=== PATIENT | female | born 1985 | race Caucasian/White ===

== ENCOUNTER 2017-01-21 20:59 | Inpatient (IN) | payer OTHER ==
[~2017-01-21] VITALS: Ht 160 cm; Wt 52.2 kg
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
--- NOTE | ~2017-01-21 | HP ---
Unit #: [id number] #: [id number] Patient: ARNAUD MAI [id number] [place] [address] [id number] MR#: [id number] NAME: ARNAUD MAI ROOM: P178 Age: 31 Sex: F Admission Date: 01/22/2017 : 1985 Attending Physician: Mikhail Moya M.D. Admitting Physician: Mikhail Moya M.D. Primary Care Physician: Bryan Porter M.D. HISTORY AND PHYSICAL HISTORY OF PRESENT ILLNESS Arnaud is a 31 year old admitted to [facility] because of her continued polysubstance abuse which includes methamphetamine and benzodiazepines. She has had other admissions to this facility for the same. PAST MEDICAL HISTORY 1. Long history of illicit substance abuse to include benzodiazepines and meth. 2. Hepatitis C. PAST SURGICAL HISTORY Nothing reported. ALLERGIES Penicillin (facial swelling). SOCIAL HISTORY Smokes at least 1 pack per day. Denies alcohol. Admits to a long history of illicit substance abuse to include IV heroin and methamphetamine. FAMILY HISTORY Medically noncontributory. REVIEW OF SYSTEMS CONSTITUTIONAL: No fever or chills. HEENT: Denies any sore throat, ear pain or runny nose. CARDIOVASCULAR: Denies chest pain, irregular heart rhythm or palpitations. CHEST: Denies shortness of breath or cough. No hemoptysis. GASTROINTESTINAL: Denies nausea, vomiting, diarrhea or chronic constipation. ENDOCRINE: Denies history of increased thirst or urination. No recent significant weight loss or gain. GENITOURINARY: Denies dysuria, frequency, or hematuria. SKIN: Denies any rashes. HEMATOLOGIC: Denies history of increased bleeding or bruising. MUSCULOSKELETAL: Denies any hot, swollen joints. No generalized muscle pain. NEUROLOGIC: Denies problems with vision or speech. No frequent, severe headaches. No numbness, tingling or weakness in any extremities. Denies loss of bladder or bowel control. CURRENT MEDICATIONS Detox protocol. Unit #: [id number] #: [id number] Patient: ARNAUD MAI PHYSICAL EXAMINATION GENERAL: Alert, well-nourished, in no apparent distress. VITAL SIGNS: Blood pressure 100/60, heart rate 80, respirations 16, temperature 98.6. WEIGHT: 115. HEIGHT: 5 feet 3 inches. SKIN: Warm and dry without rash or lesion. HEENT: Normocephalic. TMs not viewed. Oral and nasal passages clear. Conjunctivae clear. PERRLA. EOMs intact. NECK: Supple without lymphadenopathy or thyromegaly. HEART: Regular rate and rhythm without murmur. LUNGS: Clear. ABDOMEN: Soft, nontender. : Not done. EXTREMITIES: No evidence of cyanosis, clubbing or edema. Moves all without focal deficit. NEUROLOGICAL: Grossly within normal limits. Cranial Nerves: II: Visual ang are intact. III, IV AND : Extraocular movements are intact. Pupils are equal, round and reactive to light. V: Facial sensation is grossly normal. VII: Facial movements and expression are normal. VIII: Auditory acuity grossly intact. IX, X: Uvula is midline. Phonation is normal. XI: Patient shrugs shoulders and turns head normally. XII: Tongue protrudes in the midline. Sensory and Motor Function: Sensory and motor sensation is grossly normal. Motor: moves all extremities well. Coordination: Gait is normal. Deep Tendon Reflexes: Intact. IMPRESSION Psychiatric admission. RECOMMENDATIONS PSYCHIATRIC: Per psychiatrist. MEDICAL: See no contraindication to participate in facility's activities. MEDICAL PROGNOSIS Good. MEDICAL CONDITION Stable. Dictated by... Verito Hendricks PPamellaAPamella-Julian. for Joshua Valdivia/eleanor TD: 01/22/2017 22:42 JOB #: [id number] Unit #: [id number] #: [id number] Patient: ARNAUD MAI HISTORY AND PHYSICAL Page 1 of 1 X Verito Hendricks HISTORY AND PHYSICAL
--- NOTE | ~2017-01-21 | PN ---
Unit #: [id number] #: [id number] Patient: ARNAUD MAI [id number] [facility] [address] [place] [address] [id number] MR#: [id number] NAME: ARNAUD MAI ROOM: 78 Age: 31 Sex: F Admission Date: 01/22/2017 : 1985 Attending Physician: Mikhail Moya M.D. Admitting Physician: Mikhail Moya M.D. Primary Care Physician: Joshua Perez PROGRESS NOTES DATE 01/23/2017 DISCUSSION The patient is resting comfortably. Her detox continues uneventfully, but her withdrawal symptoms have prevented her from participating to any significant degree within the therapeutic milieu. Dictated by... Mikhail Moya M.D. CB/bzg TD: 01/23/2017 15:15 JOB #: [id number] PATTI PROGRESS NOTES Page 1 of 1 X Mikhail Moya MD X PROGRESS NOTE
--- NOTE | ~2017-01-21 | DS ---
Unit #: [id number] #: [id number] Patient: ARNAUD MAI [id number] [place] [address] [id number] MR#: [id number] NAME: ARNAUD MAI ROOM: [facility] Age: 31 Sex: F Admission Date: 01/22/2017 : 1985 Discharge Date: 01/24/2017 Attending Physician: Mikhail Moya M.D. Primary Care Physician: Bryan Porter M.D. DISCHARGE SUMMARY REASON FOR ADMISSION The patient is a 31-year-old white female, admitted to the [address] [place] [address] for opioid detox. HOSPITAL COURSE The patient was admitted to the [address] [place] [address] and placed on a routine detoxification protocol. Her stay in the hospital was a brief and uneventful one, her detox was an uneventful one. She was begun on Bactrim DS for urinary tract infection shortly prior to discharge and was agreeable with plan for followup in the intensive outpatient program following discharge. DISCHARGE DIAGNOSES Champion I Opioid use disorder. Methamphetamine use disorder. Sedative hypnotic use disorder. Champion II Champion III Champion IV Champion V DISPOSITION ON DISCHARGE The patient is discharged on the following medications: Bactrim DS one tablet twice daily x3 days for urinary tract infection PROGNOSIS Her prognosis is fair. DIET AND ACTIVITY No dietary or physical restrictions were placed on the patient at the time of discharge. She will followup in the chemical dependence intensive outpatient program provided by this facility. Dictated by... Mikhail Moya M.D. Unit #: [id number] #: [id number] Patient: ARNAUD MAI PIA/crispin TD: 01/27/2017 08:37 JOB #: [id number] DISCHARGE SUMMARY Page 1 of 1 X Mikhail Moya MD X DISCHARGE SUMMARY
[2017-01-22 09:56] LABS: BASOPHIL% 0.4 % (0-2.5); EOSINOPHIL# 0.2 X10e3 (0-0.7); EOSINOPHIL% 2.8 % (0.0-7.0); HEMOGLOBIN 12.8 gm/dL (12.0-16.0); LYMPHOCYTE# 2.5 X10e3 (1.0-3.5); LYMPHOCYTE% 43.5 % (17.0-45.0); MEAN CELL VOLUME 83.6 FL (83-96); MEAN CORPUSCULAR HGB CONC 33.5 g/dL (30-36); MEAN PLATELET VOLUME 10.1 FL (6.5-11.5); MONOCYTE# 0.3 X10e3 (0-1.0); MONOCYTE% 5.6 % (3.0-12.0); NEUTROPHIL# 2.7 X10e3 (1.5-7.1); NEUTROPHIL% 47.7 % (40-75); PLATELET COUNT 190 X10e3 (140-420); RED BLOOD COUNT 4.55 X10e (3.90-5.30); RED CELL DISTRIBUTION WIDTH 14.8 % (11.0-15.5); WHITE BLOOD COUNT 5.7 X10e3 (4.0-10.5)
[2017-01-22 09:56] LABS: URINE APPEARANCE TURBID; URINE BILIRUBIN NEG (NEG); URINE BLOOD NEG (NEG); URINE COLOR YELLOW; URINE GLUCOSE NEG (NEG); URINE KETONE NEG (NEG); URINE LEUKOCYTE ESTERASE 1+ (NEG); URINE NITRATE POS (NEG); URINE PROTEIN NEG (NEG); URINE SPECIFIC GRAVITY 1.027 (1.003-1.035); URINE UROBILINOGEN 0.2 MG/DL (NEG)
[2017-01-22 09:58] LABS: URINE BACTERIA AUWI 4+ (NEGATIVE); URINE SQUAMOUS EPITHELIAL CELL MOD /[HPF]; UWBCS1 AUWI 50-100 (0-5)
[2017-01-22 10:01] LABS: DIFF IND NO
[2017-01-22 10:12] LABS: ALBUMIN SERUM 3.6 g/dL (3.5-5.0); BILIRUBIN,TOTAL 0.7 mg/dL (0.2-2.0); CREATININE SERUM 0.5 mg/dL (0.6-1.4); GLOM FILT RATE Estimated 130.8 mL/min (>60); POTASSIUM 4.2 mmol/L (3.5-5.1); PROTEIN TOTAL SERUM 6.1 g/dL (6.0-8.3)
[2017-01-22 10:36] LABS: URINE CRYSTALS CALCIUM OXALATE /[HPF]
[2017-01-22 12:05] LABS: AMPHETAMINE POS (NEG); BARBITURATES NEG (NEG); BENZODIAZEPINES NEG (NEG); COCAINE NEG (NEG); MARIJUANA NEG (NEG); OPIATES POS (NEG); TRICYCLIC ANTIDEPRESSANTS NEG (NEG); U METHADONE NEG (NEG)
== END 2017-01-24 17:05 | DRG 897 ==
LOC: P1E 01-22 00:40
PROVIDERS: Specialist
PROC: HZ2ZZZZ Detoxification Services for Substance Abuse Treatment (ICD-10-PCS; principal; 2017-01-22)
DX: F11.10 Opioid abuse, uncomplicated (principal); F13.10 Sedative, hypnotic or anxiolytic abuse, uncomplicated; F15.10 Other stimulant abuse, uncomplicated
CPT/HCPCS: 80053; 80307; 81003; 85025; 86592